=== PATIENT | male | born 1995 | race African-American/Black ===

== ENCOUNTER 2018-04-05 14:11 | Emergency (ER) | payer OTHER ==
[2018-04-05] MEDS: DERMABOND TOPICAL SKIN ADHESIVE TOP ×2 (15:59)
== END 2018-04-05 16:20 | disposition home or self-care (01) ==
LOC: M ED 14:11
DX: S61.211A Laceration without foreign body of left index finger without damage to nail, initial encounter (principal); W26.8XXA Contact with other sharp object(s), not elsewhere classified, initial encounter; Y92.89 Other specified places as the place of occurrence of the external cause
CPT/HCPCS: 12001; 99283

== ENCOUNTER 2019-12-20 19:26 | Emergency (ER) | payer OTHER ==
[~2019-12-20] VITALS: Ht 170.2 cm; Wt 96.1 kg
[2019-12-20] MEDS ORDERED: ACET-897 PO (19:34)
[2019-12-20] MEDS ORDERED: ROBA750T4 PO (19:34)
[2019-12-20] MEDS ORDERED: BACT800T5 PO (20:35)
[2019-12-20 20:47] VITALS: BP 136/86
== END 2019-12-20 20:49 | disposition home or self-care (01) ==
LOC: M ED 19:26
DX: L05.91 Pilonidal cyst without abscess (principal); Z79.899 Other long term (current) drug therapy